=== PATIENT | male | born 1975 | race African-American/Black ===

== ENCOUNTER 2021-06-04 16:11 | Emergency (ER) | payer SELFPAY ==
[~2021-06-04] VITALS: Ht 177.8 cm; Wt 77.0 kg
[2021-06-04] MEDS ORDERED: ONDANSETRON 4MG/2ML VIAL IV ONE (17:20)
[2021-06-04] MEDS ORDERED: NS 1,000 ML IV ONE (17:20)
[2021-06-04] MEDS ORDERED: KETOROLAC 30 MG/ML 1ML VIAL IV ONE (17:20)
[2021-06-04] MEDS ORDERED: ISOVUE-370 76% 100ML VIAL As Ordered ONE (17:45)
--- NOTE | 2021-06-04 17:47 | REP ---
INDICATION: Abdominal Pain COMPARISON: None. TECHNIQUE: PA and lateral. FINDINGS: The mediastinum and cardiac silhouette are normal. The lung basilio are clear and without acute consolidation, effusion, or pneumothorax. The skeletal structures are intact and normal. IMPRESSION: No acute cardiopulmonary process. <Electronically signed by Jamin Tolentino > 06/04/21 [id number]
[2021-06-04 18:02] LABS: ALBUMIN 3.5 GM/DL (3.2-5.2); ALT/SGPT 31 U/L (12-78); BASO % 0.4 % (0.0-1.0); BILIRUBIN,DIRECT < 0.1 MG/DL (0.0-0.2); BILIRUBIN,TOTAL 0.2 MG/DL (0.2-1.0); EOS # 0.1 10^3/uL (0.0-0.5); EOS % 1.7 % (0.0-3.0); HEMATOCRIT 46.9 % (42.0-52.0); HEMOGLOBIN 15.8 g/dl (13.5-17.5); LIPASE 568 U/L (73-393); LYMPH # 1.8 10^3/uL (1.5-5.0); LYMPH % 25.2 % (24.0-44.0); MEAN CORPUSCULAR HEMOGLOBIN 30.2 pg (27.0-33.0); MEAN CORPUSCULAR HGB CONC 33.7 g/dl (32.0-36.5); MEAN CORPUSCULAR VOLUME 89.7 fl (80.0-96.0); MONO # 0.6 10^3/uL (0.0-0.8); MONO % 9.1 % (2.0-8.0); NEUTROPHILS # 4.5 10^3/uL (1.5-8.5); NEUTROPHILS % 63.2 % (36.0-66.0); PLATELET COUNT, AUTOMATED 281 10^3/uL (150-450); RED BLOOD COUNT 5.23 10^6/uL (4.30-6.10); TOTAL PROTEIN 6.7 GM/DL (6.4-8.2); WHITE BLOOD COUNT 7.1 10^3/uL (4.0-10.0)
[2021-06-04 18:21] LABS: RSV AMPLIFICATION NEGATIVE (NEGATIVE)
--- NOTE | 2021-06-04 18:45 | REPVR ---
PROCEDURE INFORMATION: Exam: CT Abdomen And Pelvis With Contrast Exam date and time: 06/04/2021 5:18 PM Age: 45 years old Clinical indication: Abdominal pain; Additional info: Upper abd pain TECHNIQUE: Imaging protocol: Computed tomography of the abdomen and pelvis with contrast. Radiation optimization: All CT scans at this facility use at least one of these dose optimization techniques: automated exposure control; mA and/or kV adjustment per patient size (includes targeted exams where dose is matched to clinical indication); or iterative reconstruction. Contrast material: ISOVUE 370; Contrast volume: 100 ml; Contrast route: INTRAVENOUS (IV); COMPARISON: CR Chest, 2 view PA, Lat 06/04/2021 5:30 PM FINDINGS: Liver: There are no focal liver lesions. Gallbladder and bile ducts: The gallbladder is contracted and therefore not well assessed however no calculi are apparent. Pancreas: The pancreatic head appears prominent however no discrete mass is identified. Spleen: The spleen is unremarkable. Adrenal glands: The adrenal glands are unremarkable. Kidneys and ureters: The kidneys are unremarkable. Stomach and bowel: There is no evidence of intestinal obstruction although there may be thickening of the jejunal wall in the left upper quadrant. Appendix: No evidence of appendicitis. Intraperitoneal space: Unremarkable. No free air. No significant fluid collection. Vasculature: There is no evidence of an infrarenal abdominal aortic aneurysm. Lymph nodes: Unremarkable. No enlarged lymph nodes. Urinary bladder: The bladder is unremarkable. Reproductive: Unremarkable as visualized. Bones/joints: Unremarkable. No acute fracture. Soft tissues: Unremarkable. Other findings: Emphysema. IMPRESSION: No definite acute findings however there may be thickening of the jejunal wall in the left upper quadrant which could be due to enteritis among other etiologies. There is no evidence of edema or inflammation in the adjacent mesentery. Electronically signed by: Gladys Moore On 06/04/2021 18:44:27 PM
[2021-06-04] MEDS ORDERED: ONDA4TAB6 PO (19:00)
[2021-06-04 19:11] VITALS: BP 115/78
--- NOTE | 2021-06-05 20:14 | ED PDOC ---
Post-Departure Follow-Up certified letter sent regarding radiology report Millie Graham MD Jun 05, 2021 20:14
== END 2021-06-05 08:26 | disposition home or self-care (01) ==
LOC: M ED 16:11
DX: K85.90 Acute pancreatitis without necrosis or infection, unspecified (principal); F12.10 Cannabis abuse, uncomplicated; F17.200 Nicotine dependence, unspecified, uncomplicated
CPT/HCPCS: 71046; 74177; 80047; 80076; 83690; 85025; 87631; 96361; 96374; 99284; J1885; J2405; Q9967

== ENCOUNTER 2021-07-05 10:24 | Emergency (ER) | payer SELFPAY ==
[~2021-07-05] VITALS: Ht 177.8 cm; Wt 74.3 kg
[~2021-07-05 10:24] MED LIST: ONDA4TAB6 PO
[2021-07-05] MEDS ORDERED: ONDANSETRON 4MG/2ML VIAL IV ONE (11:20)
[2021-07-05] MEDS ORDERED: NS 1,000 ML IV ONE (11:20)
[2021-07-05 12:02] LABS: BASO % 0.4 % (0.0-1.0); EOS # 0.1 10^3/uL (0.0-0.5); EOS % 1.6 % (0.0-3.0); HEMOGLOBIN 16.2 g/dl (13.5-17.5); LYMPH # 1.5 10^3/uL (1.5-5.0); LYMPH % 19.4 % (24.0-44.0); MEAN CORPUSCULAR HGB CONC 33.8 g/dl (32.0-36.5); MEAN CORPUSCULAR VOLUME 88.9 fl (80.0-96.0); MONO # 0.5 10^3/uL (0.0-0.8); MONO % 6.4 % (2.0-8.0); NEUTROPHILS # 5.4 10^3/uL (1.5-8.5); NEUTROPHILS % 71.9 % (36.0-66.0); PLATELET COUNT, AUTOMATED 256 10^3/uL (150-450); WHITE BLOOD COUNT 7.5 10^3/uL (4.0-10.0)
[2021-07-05 12:31] LABS: ERYTHROCYTE SEDIMENTATION RATE 5 mm/hr (0-15)
[2021-07-05 12:36] LABS: ALBUMIN 3.4 GM/DL (3.2-5.2); ALT/SGPT 23 U/L (12-78); BILIRUBIN,DIRECT < 0.1 MG/DL (0.0-0.2); BILIRUBIN,TOTAL 0.3 MG/DL (0.2-1.0); C REACTIVE PROTEIN QUANTITATIV < 0.30 MG/DL (0.00-0.30); LIPASE 139 U/L (73-393); TOTAL PROTEIN 6.7 GM/DL (6.4-8.2)
[2021-07-05 12:36] LABS: CK-MB VALUE MASS 2.2 NG/ML (<3.6); MB/CK RELATIVE INDEX 0.84 (< OR =4)
[2021-07-05] MEDS ORDERED: ACETAMINOPHEN 325 MG TAB PO ONE (12:40)
[2021-07-05 12:44] LABS: RSV AMPLIFICATION NEGATIVE (NEGATIVE)
[2021-07-05] MEDS ORDERED: ONDA4TAB6 PO (12:55)
[2021-07-05 14:00] VITALS: BP 119/78
== END 2021-07-05 14:07 | disposition home or self-care (01) ==
LOC: M ED 10:24
DX: J06.9 Acute upper respiratory infection, unspecified (principal); R43.9 Unspecified disturbances of smell and taste; R06.00 Dyspnea, unspecified; R53.83 Other fatigue; I45.19 Other right bundle-branch block; I25.10 Atherosclerotic heart disease of native coronary artery without angina pectoris; I12.9 Hypertensive chronic kidney disease with stage 1 through stage 4 chronic kidney disease, or unspecified chronic kidney disease
CPT/HCPCS: 36415; 71046; 80047; 80076; 82550; 82553; 83690; 84484; 85025; 85652; 86140; 87631; 93005; 96361; 96374; 99284; J2405